=== PATIENT | female | born 1980 | race Caucasian/White ===

== ENCOUNTER 2017-10-08 21:38 | Observation (INO) ==
[2017-10-08] MEDS ORDERED: KETOROLAC 30 MG/1 ML VIAL IV STA (22:18)
[2017-10-08] MEDS ORDERED: ONDANSETRON 4 MG/2 ML VIAL IV STA (22:18)
[2017-10-08] MEDS ORDERED: ORPHENADRINE 60 MG/2 ML VIAL IV STA (22:18)
[2017-10-08] MEDS ORDERED: methylPREDNISolone SOD SUC 125 MG/2 ML VIAL IV STA (22:18)
[2017-10-08 23:33] LABS: Basophils % 0.4 % (0.0-0.8); Eosinophils # 0.1 10*3/uL (0.0-0.87); Eosinophils % 0.9 % (0.00-10.9); Hemoglobin 13.9 GM/DL (12.0-16.0); Immature Granulocytes % 0.1 %; Immature Granulocytes Absolute 0.01 #; Lymphocytes # 4.2 10*3/uL (1.4-4.0); Lymphocytes % 49.6 % (21.3-54.2); Mean Corpuscular HGB Conc 34.8 GM/DL (32-36); Mean Corpuscular Hemoglobin 34 PG (27-34); Mean Corpuscular Volume 97.3 FL (87-102); Mean Platelet Volume 10.1 FL (9.6-12.0); Monocytes # 0.4 10*3/uL (0.11-0.8); Monocytes % 4.5 % (1.7-12.7); Neutrophils # 3.8 10*3/uL (1.4-7.4); Neutrophils % 44.5 % (38.7-73.9); Platelet Count 230 T/CUMM (130-400); Red Blood Count 4.11 MC/CUMM (3.8-5.5); Red Cell Distribution Width 12.8 % (9.3-17.3); White Blood Count 8.5 T/CUMM (4-12)
[2017-10-08 23:39] LABS: Alanine Aminotransferase 51 U/L (13-56); Alkaline Phosphatase 100 U/L (45-117); Aspartate Amino Transferase 31 U/L (0-37); Bilirubin,Total < 0.39 MG/DL (0.2-1.0); Blood Urea Nitrogen 19 MG/DL (7-18); Calcium 8.9 MG/DL (8.5-10.1); Glucose 111 MG/DL (74-106); Osmolality,Calculated 283.3 MOS/KG (273-304); Potassium 3.8 MMOL/L (3.5-5.1); Sodium 141 MMOL/L (136-145); Total Protein 7.4 G/DL (6.4-8.3)
[2017-10-08 23:42] LABS: INR 0.9; PT Patient Result 9.8 SECS; Partial Thromboplastin Time 24.6 SECS (0-40)
[2017-10-09] MEDS ORDERED: NICOTINE 14 MG/24 HR PATCH TRANSDERM PRN (02:51)
[2017-10-09] MEDS ORDERED: CYCLOBENZAPRINE 10 MG TABLET PO PRN (02:51)
[2017-10-09] MEDS ORDERED: PARoxetine 20 MG TABLET PO SCH (02:51)
[2017-10-09] MEDS ORDERED: ACETAMINOPHEN 325 MG TABLET PO PRN (02:51)
[2017-10-09] MEDS ORDERED: ONDANSETRON 4 MG/2 ML VIAL IV PRN (02:51)
[2017-10-09] MEDS: GABAPENTIN 300 MG CAPSULE PO SCH ×2 (04:02→15:03)
[2017-10-09] MEDS ORDERED: PANTOPRAZOLE 40 MG TABLET PO SCH (09:00)
[2017-10-09] MEDS ORDERED: DOCUSATE SODIUM 100 MG CAPSULE PO SCH (09:00)
[2017-10-09] MEDS ORDERED: SODIUM CHLORIDE 0.9% 1,000 ML IV SCH ×2 (12:30)
[2017-10-09 16:21] VITALS: BP 125/62
== END 2017-10-09 18:25 | disposition home or self-care (01) ==
LOC: N.ED 21:38 → N.EDINP 21:38 → N.2E 10-09 02:27
PROVIDERS: ADMIT Internal Medicine; ATTEND Internal Medicine

== ENCOUNTER 2019-06-04 21:10 | Observation (INO) ==
[2019-06-04] MEDS ORDERED: SODIUM CHLORIDE 0.9% 1,000 ML IV STA (23:07)
[2019-06-04] MEDS ORDERED: fentaNYL 100 MCG/2 ML VIAL IV STA (23:09)
[2019-06-04] MEDS ORDERED: ONDANSETRON 4 MG/2 ML VIAL IV ONE (23:09)
[2019-06-05 00:31] LABS: Apearance,Urine CLEAR (Clear); Bilirubin,Urine Negative (Negative); Blood, Urine Negative (Negative); Glucose,Urine (UA) Negative (Negative); Ketones,Urine Negative (Negative); Mucus,Urine Occasional /LPF (Occasional); Nitrite,Urine Negative (Negative); Protein,Urine Negative; RBC,Urine 1 /HPF (0-4); Squamous Epithelial Cell,Urine Occasional /HPF (0-10); Urine Color Yellow (Yellow); Urine Specific Gravity 1.023 (1.001-1.035); Urine Urobilinogen < 2.0 EU/DL (0.2-1.0); WBC,Urine <1 /HPF (0-6)
[2019-06-05 00:42] LABS: Calcium 8.8 MG/DL (8.5-10.1); Osmolality,Calculated 277.5 MOS/KG (273-304)
[2019-06-05] MEDS ORDERED: metroNIDAZOLE INJ 500 MG in PREMIX 1 EACH IV STA (01:21)
[2019-06-05] MEDS ORDERED: CIPROFLOXACIN INJ 400 MG in PREMIX 1 EACH IV STA (01:21)
[2019-06-05] MEDS ORDERED: hydrALAZINE 20 MG/1 ML VIAL IV PRN (02:17)
[2019-06-05] MEDS ORDERED: MEPERIDINE 25 MG/1 ML VIAL IV PRN ×3 (02:17→14:13)
[2019-06-05] MEDS ORDERED: ACETAMINOPHEN 325 MG TABLET PO PRN (02:17)
[2019-06-05] MEDS ORDERED: DEXTROSE 50% 25 GM/50 ML VIAL IV PRN (02:17)
[2019-06-05] MEDS ORDERED: ALUMINUM/MAGNES/SIMETH MAX STR 30 ML UDCUP PO PRN (02:17)
[2019-06-05] MEDS ORDERED: diphenhydrAMINE CAP 25 MG CAPSULE PO PRN (02:17)
[2019-06-05] MEDS ORDERED: PROMETHAZINE 25 MG/1 ML VIAL IM PRN (02:17)
[2019-06-05] MEDS ORDERED: GLUCAGON 1 MG VIAL IM PRN (02:17)
[2019-06-05] MEDS ORDERED: NICOTINE 21 MG/24 HR PATCH TRANSDERM PRN (02:17)
[2019-06-05] MEDS ORDERED: ONDANSETRON 4 MG/2 ML VIAL IV PRN (02:17)
[2019-06-05] MEDS: metroNIDAZOLE INJ 500 MG in PREMIX 1 EACH IV SCH ×2 (04:20→16:42)
[2019-06-05] MEDS: SODIUM CHLORIDE 0.9% 1,000 ML IV SCH ×3 (04:30→21:40)
[2019-06-05] MEDS ORDERED: SODIUM PHOSPHATE ENEMA 133 ML BOTTLE RECTAL ONE ×2 (07:09→21:00)
[2019-06-05 07:37] LABS: Basophils % 0.1 % (0.0-0.8); Eosinophils % 0.3 % (0.00-10.9); Hematocrit 36.6 VOL% (35.7-47.0); Hemoglobin 12.4 GM/DL (12.0-16.0); Immature Granulocytes % 0.3 %; Immature Granulocytes Absolute 0.02 #; Lymphocytes % 27.9 % (21.3-54.2); Mean Corpuscular HGB Conc 33.9 GM/DL (32-36); Mean Corpuscular Volume 96.1 FL (87-102); Mean Platelet Volume 9.8 FL (9.6-12.0); Neutrophils % 65.4 % (38.7-73.9); Platelet Count 174 T/CUMM (130-400); Red Blood Count 3.81 MC/CUMM (3.8-5.5); Red Cell Distribution Width 12.7 % (9.3-17.3); White Blood Count 7.3 T/CUMM (4-12)
[2019-06-05 08:12] LABS: Albumin 3.3 G/DL (3.4-5.0); Bilirubin,Total 0.6 MG/DL (0.2-1.0); Calcium 8.2 MG/DL (8.5-10.1); Osmolality,Calculated 280.3 MOS/KG (273-304); Total Protein 6.6 G/DL (6.4-8.3)
[2019-06-05] MEDS ORDERED: MAGNESIUM CITRATE 300 ML BOTTLE PO ONE (08:13)
[2019-06-05] MEDS ORDERED: FLUTICASONE 50 MCG NASAL SPRAY 16 GM BOTTLE BOTH NARES PRN (09:07)
[2019-06-05] MEDS ORDERED: NAPROXEN 500 MG TABLET PO PRN (09:07)
[2019-06-05] MEDS: BISACODYL 5 MG TABLET PO SCH (11:51)
[2019-06-05] MEDS: CIPROFLOXACIN INJ 400 MG in PREMIX 1 EACH IV SCH (14:36)
[2019-06-05] MEDS: POLYETHYLENE GLYCOL POWDER 17 GM PACK PO SCH ×2 (15:38→21:35)
[2019-06-05] MEDS ORDERED: ROSUVASTATIN 10 MG TABLET PO SCH (21:00)
[2019-06-05] MEDS ORDERED: GABAPENTIN 300 MG CAPSULE PO SCH (21:00)
[2019-06-05] MEDS ORDERED: PARoxetine 20 MG TABLET PO SCH (21:00)
[2019-06-05] MEDS: TOPIRAMATE 25 MG TABLET PO SCH (21:35)
[2019-06-05] MEDS: GABAPENTIN 300 MG CAPSULE PO SCH (21:35)
[2019-06-06] MEDS: CIPROFLOXACIN INJ 400 MG in PREMIX 1 EACH IV SCH (02:09)
[2019-06-06] MEDS: metroNIDAZOLE INJ 500 MG in PREMIX 1 EACH IV SCH (03:51)
[2019-06-06] MEDS: SODIUM CHLORIDE 0.9% 1,000 ML IV SCH (04:22)
[2019-06-06 05:15] LABS: Basophils % 0.4 % (0.0-0.8); Eosinophils % 0.6 % (0.00-10.9); Hematocrit 34.7 VOL% (35.7-47.0); Hemoglobin 11.5 GM/DL (12.0-16.0); Immature Granulocytes % 0.3 %; Immature Granulocytes Absolute 0.02 #; Lymphocytes # 2.5 10*3/uL (1.4-4.0); Mean Corpuscular HGB Conc 33.1 GM/DL (32-36); Mean Corpuscular Volume 98.6 FL (87-102); Monocytes % 6.4 % (1.7-12.7); Neutrophils % 55.3 % (38.7-73.9); Platelet Count 167 T/CUMM (130-400); Red Blood Count 3.52 MC/CUMM (3.8-5.5); Red Cell Distribution Width 12.7 % (9.3-17.3); White Blood Count 6.8 T/CUMM (4-12)
[2019-06-06 05:47] LABS: Albumin 3.3 G/DL (3.4-5.0); Bilirubin,Total 0.7 MG/DL (0.2-1.0); Calcium 7.9 MG/DL (8.5-10.1); Osmolality,Calculated 282.1 MOS/KG (273-304); Total Protein 6.3 G/DL (6.4-8.3)
[2019-06-06 08:09] VITALS: BP 112/70
[2019-06-06] MEDS ORDERED: CIPROFLOXACIN 500 MG TABLET PO ONE (08:18)
[2019-06-06] MEDS ORDERED: ONDANSETRON 4 MG/2 ML VIAL IV ONE (08:22)
[2019-06-06] MEDS ORDERED: metroNIDAZOLE 500 MG TABLET PO SCH ×2 (08:30→14:00)
[2019-06-06] MEDS: GABAPENTIN 300 MG CAPSULE PO SCH (09:18)
[2019-06-06] MEDS: POLYETHYLENE GLYCOL POWDER 17 GM PACK PO SCH (09:18)
[2019-06-06] MEDS: BISACODYL 5 MG TABLET PO SCH (09:19)
[2019-06-06] MEDS: TOPIRAMATE 25 MG TABLET PO SCH (09:19)
== END 2019-06-06 10:35 | disposition home or self-care (01) ==
LOC: N.ED 21:10 → N.EDINP 21:10 → N.3E 06-05 02:28
PROVIDERS: ADMIT Internal Medicine; ATTEND Internal Medicine